=== PATIENT | male | born 1970 | race Two or more races ===

== ENCOUNTER 2016-12-23 15:15 | Emergency (ER) | payer MEDICAID ==
[~2016-12-23] VITALS: Ht 170.2 cm; Wt 75.0 kg
[2016-12-23] MEDS ORDERED: LORAZEPAM 1MG TABLET PO ONE (21:15)
[2016-12-24] MEDS ORDERED: SODIUM CHLORIDE 0.9% 1,000 ML IV ONE (04:51)
[2016-12-24] MEDS ORDERED: IBUPROFEN 600MG TABLET PO STA (04:51)
[2016-12-24] MEDS ORDERED: CHLORDIAZEPOXIDE 25MG CAPSULE PO ONE (06:00)
[2016-12-24 14:08] VITALS: BP 147/78
== END 2016-12-24 14:51 | disposition home or self-care (01) ==
LOC: EDBD 15:15 → ER 15:15
DX: F10.129 Alcohol abuse with intoxication, unspecified (principal)
CPT/HCPCS: 36415; 96360; 99284; G0482; J7030

== ENCOUNTER 2017-04-16 17:38 | Emergency (ER) | payer MEDICAID ==
[~2017-04-16] VITALS: Ht 170.2 cm; Wt 70.0 kg
[2017-04-16 17:41] VITALS: BP 113/80
== END 2017-04-16 19:05 | disposition left against medical advice (07) ==
LOC: ER 17:44
DX: R51 Headache (principal); Z53.21 Procedure and treatment not carried out due to patient leaving prior to being seen by health care provider

== ENCOUNTER 2017-05-07 17:20 | Emergency (ER) | payer MEDICAID ==
[~2017-05-07] VITALS: Ht 165.1 cm; Wt 73.0 kg
[2017-05-07 19:22] LABS: BASOPHILS % 0.7 % (0.0-2.0); EOSINOPHILS % 0.7 % (0.0-5.0); HEMOGLOBIN. 14.7 g/dL (14.0-18.0); LYMPHOCYTES % 25.3 % (20.0-50.0); MEAN CORPUSCULAR HEMOGLOBIN 30.1 pg (28.0-32.0); MEAN CORPUSCULAR VOLUME 86.2 fL (80.0-94.0); MEAN PLATELET VOLUME 7.3 fl (7.4-10.4); MONOCYTES % 11.2 % (2.0-8.0); NEUTROPHILS % 62.1 % (40.0-76.0); PLATELET 121 x1000/uL (130-400); RED BLOOD CELL COUNT 4.88 mill/uL (4.7-6.1)
[2017-05-07 19:38] LABS: CARBON DIOXIDE 25 mEq/L (21-32); CHLORIDE 100 mEq/L (98-107)
[2017-05-07 19:40] LABS: ETHANOL BLOOD 330 mg/dL
[2017-05-07 23:29] VITALS: BP 132/56
== END 2017-05-07 23:32 | disposition home or self-care (01) ==
LOC: ER 17:20
DX: F10.229 Alcohol dependence with intoxication, unspecified (principal); Y92.481 Parking lot as the place of occurrence of the external cause; Y90.8 Blood alcohol level of 240 mg/100 ml or more
CPT/HCPCS: 36415; 80048; 85025; 99284; G0482

== ENCOUNTER 2017-05-08 01:26 | Emergency (ER) | payer MEDICAID ==
[~2017-05-08] VITALS: Ht 160 cm; Wt 73.0 kg
[2017-05-08 05:00] VITALS: BP 138/76
[2017-05-08] MEDS ORDERED: CEPHALEXIN 500MG CAPSULE PO ONE (05:00)
[2017-05-08] MEDS ORDERED: IBUPROFEN 400MG TABLET PO ONE (05:00)
== END 2017-05-08 06:00 | disposition home or self-care (01) ==
LOC: ER 01:26
DX: B35.3 Tinea pedis (principal); F10.10 Alcohol abuse, uncomplicated
CPT/HCPCS: 99283

== ENCOUNTER 2019-12-20 13:16 | Emergency (ER) | payer SELFPAY ==
[~2019-12-20] VITALS: Ht 167.6 cm; Wt 69.0 kg
[2019-12-20] MEDS ORDERED: SODIUM CHLORIDE 0.9% 1,000 ML IV ONE (13:50)
[2019-12-20] MEDS ORDERED: ONDANSETRON HCL 4MG/2ML INJ IV ONE (14:00)
[2019-12-20 14:23] VITALS: BP 118/74
[2019-12-20 14:38] LABS: BASOPHILS % 0.4 % (0.0-2.0); EOSINOPHILS % 0.6 % (0.0-5.0); HEMATOCRIT. 41.2 % (42.0-52.0); HEMOGLOBIN. 14.1 g/dL (14.0-18.0); LYMPHOCYTES % 42.4 % (20.0-50.0); MEAN CORPUSCULAR HEMOGLOBIN 29.4 pg (28.0-32.0); MEAN CORPUSCULAR VOLUME 85.7 fL (80.0-94.0); MONOCYTES % 11.3 % (2.0-8.0); NEUTROPHILS % 45.3 % (40.0-76.0); RED BLOOD CELL COUNT 4.81 mill/uL (4.7-6.1); RED CELL DISTRIBUTION WIDTH 16.2 % (11.6-14.6)
[2019-12-20 14:43] LABS: CHLORIDE 106 mEq/L (98-107)
[2019-12-20 14:52] LABS: PLATELET 46 x1000/uL (130-400)
[2019-12-20] MEDS ORDERED: POTASSIUM CHLORIDE 20MEQ TABLET SR PO ONE (15:00)
[2019-12-20] MEDS ORDERED: MAGNESIUM 2 G PREMIX 50 ML IV ONE (15:00)
[2019-12-20 15:17] LABS: ETHANOL BLOOD 404 mg/dL
[2019-12-20 16:24] LABS: PLATELET ESTIMATE MARKEDLY DECREASED
== END 2019-12-20 21:10 | disposition home or self-care (01) ==
LOC: ER 13:39
DX: T51.0X1A Toxic effect of ethanol, accidental (unintentional), initial encounter (principal); G92 Toxic encephalopathy; F10.229 Alcohol dependence with intoxication, unspecified; Y90.8 Blood alcohol level of 240 mg/100 ml or more; Y92.512 Supermarket, store or market as the place of occurrence of the external cause; R03.0 Elevated blood-pressure reading, without diagnosis of hypertension; Z72.0 Tobacco use
CPT/HCPCS: 36415; 70450; 80053; 80307; 80320; 80329; 85025; 96365; 96366; 96375; 99284; J2405; J3475; J7030; G0480

== ENCOUNTER 2020-02-26 09:47 | Emergency (ER) | payer MEDICAID ==
[~2020-02-26] VITALS: Ht 154.9 cm; Wt 73.0 kg
[2020-02-26] MEDS ORDERED: FOLIC ACID 1 MG, THIAMINE HCL 100 MG, MVI, ADULT NO.1 10 ML in DEXTROSE 5% WATER 1,000 ML IV ONE ×4 (10:00)
[2020-02-26 10:13] LABS: BASOPHILS % 0.8 % (0.0-2.0); EOSINOPHILS % 1.2 % (0.0-5.0); HEMATOCRIT. 41.8 % (42.0-52.0); HEMOGLOBIN. 14.2 g/dL (14.0-18.0); LYMPHOCYTES % 39.9 % (20.0-50.0); MEAN CORPUSCULAR HEMOGLOBIN 29.9 pg (28.0-32.0); MEAN CORPUSCULAR VOLUME 88.1 fL (80.0-94.0); MEAN PLATELET VOLUME 6.8 fl (7.4-10.4); MONOCYTES % 3.8 % (2.0-8.0); NEUTROPHILS % 54.3 % (40.0-76.0); PLATELET 152 x1000/uL (130-400); RED BLOOD CELL COUNT 4.74 mill/uL (4.7-6.1); RED CELL DISTRIBUTION WIDTH 16.3 % (11.6-14.6)
[2020-02-26 10:21] LABS: CHLORIDE 110 mEq/L (98-107)
[2020-02-26] MEDS ORDERED: ONDANSETRON HCL 4MG/2ML INJ IV ONE (10:30)
[2020-02-26 10:41] LABS: ETHANOL BLOOD 418 mg/dL
[2020-02-26] MEDS ORDERED: POTASSIUM CHLORIDE 20MEQ TABLET SR PO ONE (11:00)
[2020-02-26 13:21] LABS: CLARITY URINE CLEAR (CLEAR); COLOR URINE YELLOW (YELLOW); KETONES URINE NEGATIVE (NEGATIVE); LEUKOCYTE ESTERASE URINE NEGATIVE (NEGATIVE); NITRITE URINE NEGATIVE (NEGATIVE); OCCULT BLOOD URINE NEGATIVE (NEGATIVE); PH URINE 6.5 (4.5-8.0); PROTEIN URINE 1+ (NEGATIVE); SPECIFIC GRAVITY URINE 1.015 (1.005-1.030); UROBILINOGEN URINE 0.2 E.U./dL (0.2-1.0)
[2020-02-26 13:56] LABS: *AMPHETAMINES SCREEN URINE NEGATIVE (NEGATIVE); *BARBITURATES SCREEN URINE NEGATIVE (NEGATIVE); *BENZODIAZEPINES SCREEN URINE NEGATIVE (NEGATIVE); *COCAINE SCREEN URINE NEGATIVE (NEGATIVE); METHADONE URINE SCREEN NEGATIVE (NEGATIVE); OPIATES URINE SCREEN NEGATIVE (NEGATIVE)
[2020-02-26 13:57] LABS: CANNABINOID URINE SCREEN NEGATIVE (NEGATIVE); PHENCYCLIDINE URINE SCREEN NEGATIVE (NEGATIVE)
[2020-02-26] MEDS ORDERED: LORAZEPAM 0.5MG TABLET PO ONE (16:15)
[2020-02-26] MEDS ORDERED: CHLORDIAZEPOXIDE 25MG CAPSULE PO ONE (16:15)
[2020-02-26 18:00] VITALS: BP 108/61
== END 2020-02-26 18:46 | disposition home or self-care (01) ==
LOC: ER 09:47
DX: G92 Toxic encephalopathy (principal); F10.129 Alcohol abuse with intoxication, unspecified; R00.0 Tachycardia, unspecified
CPT/HCPCS: 36415; 80053; 80305; 80307; 80320; 80329; 81003; 85025; 93005; 96365; 96375; 99285; J2405; J3411; J3490; J7070; G0480

== ENCOUNTER 2020-03-03 12:27 | Emergency (ER) | payer MEDICAID ==
[~2020-03-03] VITALS: Ht 172.7 cm; Wt 82.0 kg
[2020-03-03] MEDS ORDERED: LORAZEPAM 1MG TABLET PO ONE (13:00)
[2020-03-03 13:29] LABS: BASOPHILS % 0.5 % (0.0-2.0); EOSINOPHILS % 1.5 % (0.0-5.0); HEMATOCRIT. 39.2 % (42.0-52.0); HEMOGLOBIN. 13.4 g/dL (14.0-18.0); LYMPHOCYTES % 46.2 % (20.0-50.0); MEAN CORPUSCULAR HEMOGLOBIN 29.7 pg (28.0-32.0); MEAN CORPUSCULAR VOLUME 86.8 fL (80.0-94.0); MEAN PLATELET VOLUME 7.1 fl (7.4-10.4); MONOCYTES % 5.5 % (2.0-8.0); NEUTROPHILS % 46.3 % (40.0-76.0); PLATELET 81 x1000/uL (130-400); RED BLOOD CELL COUNT 4.52 mill/uL (4.7-6.1); RED CELL DISTRIBUTION WIDTH 15.7 % (11.6-14.6)
[2020-03-03 13:36] LABS: CHLORIDE 108 mEq/L (98-107)
[2020-03-03 13:57] LABS: ETHANOL BLOOD 388 mg/dL
[2020-03-03] MEDS ORDERED: POTASSIUM CHLORIDE 20MEQ TABLET SR PO ONE (15:00)
[2020-03-03] MEDS ORDERED: SODIUM CHLORIDE 0.9% 1,000 ML IV ONE (15:45)
[2020-03-03 17:30] VITALS: BP 133/85
== END 2020-03-03 17:40 | disposition left against medical advice (07) ==
LOC: ER 12:39
DX: F10.229 Alcohol dependence with intoxication, unspecified (principal); Y90.8 Blood alcohol level of 240 mg/100 ml or more; E87.6 Hypokalemia
CPT/HCPCS: 36415; 80053; 80320; 85025; 93005; 99285; J7030; 80305; G0480

== ENCOUNTER 2020-03-10 18:02 | Emergency (ER) | payer MEDICAID ==
[~2020-03-10] VITALS: Ht 172.7 cm; Wt 75.0 kg
[2020-03-10 18:07] VITALS: BP 121/84
== END 2020-03-10 18:38 | disposition left against medical advice (07) ==
LOC: ER 18:09
DX: Z53.21 Procedure and treatment not carried out due to patient leaving prior to being seen by health care provider (principal)
CPT/HCPCS: 93005

== ENCOUNTER 2020-08-04 20:49 | Emergency (ER) | payer MEDICAID ==
[~2020-08-04] VITALS: Ht 165.1 cm; Wt 87.0 kg
[2020-08-05 01:43] LABS: BASOPHILS % 0.3 % (0.0-2.0); HEMATOCRIT. 48.5 % (42.0-52.0); HEMOGLOBIN. 16.2 g/dL (14.0-18.0); LYMPHOCYTES % 11.9 % (20.0-50.0); MEAN CORPUSCULAR HEMOGLOBIN 30.6 pg (28.0-32.0); MEAN CORPUSCULAR VOLUME 91.8 fL (80.0-94.0); MEAN PLATELET VOLUME 6.7 fl (7.4-10.4); NEUTROPHILS % 84.8 % (40.0-76.0); PLATELET 174 x1000/uL (130-400); RED BLOOD CELL COUNT 5.28 mill/uL (4.7-6.1); RED CELL DISTRIBUTION WIDTH 15.5 % (11.6-14.6)
[2020-08-05 01:49] LABS: CHLORIDE 110 mEq/L (98-107)
[2020-08-05 02:17] LABS: ETHANOL BLOOD 351 mg/dL
[2020-08-05 06:35] VITALS: BP 113/75
== END 2020-08-05 06:35 | disposition home or self-care (01) ==
LOC: ER 20:49
DX: F10.20 Alcohol dependence, uncomplicated (principal); Z00.00 Encounter for general adult medical examination without abnormal findings; Y90.8 Blood alcohol level of 240 mg/100 ml or more
CPT/HCPCS: 36415; 80053; 80320; 85025; 99283; G0480